=== PATIENT | female | born 1950 | race Caucasian/White ===

== ENCOUNTER 2020-02-23 12:03 | Outpatient (NON) | payer OTHER, SELFPAY ==
[2020-02-23 23:29] LABS: SARS-CoV-2 RNA PCR Negative
== END 2020-02-23 12:04 ==
PROVIDERS: PCP Family Medicine; Visit Provider Nurse Practitioner Family
DX: R05 Cough (principal); Z20.822 Contact with and (suspected) exposure to COVID-19
CPT/HCPCS: C9803; U0003

== ENCOUNTER 2021-04-24 10:05 | Outpatient (CLI) | payer OTHER, SELFPAY ==
--- NOTE | ~2021-04-24 | CT_ITS ---
EXAMINATION: CT lung screening DATE: 04/24/2021 10:19 INDICATION: Personal history of nicotine dependence, prior smoker with 40 pack year history TECHNIQUE: Computed tomography (CT) of the chest was performed without intravenous contrast. The dose -length product (DLP) was 91.73 mGy-cm. Automated exposure control and iterative reconstruction techn [employer] were employed. COMPARISON: 05/14/2018 FINDINGS: There are tiny 1 to 2 mm nodules of the upper lobes. No suspicious pulmonary nodule is iden tified. Calcified pulmonary nodules and calcified left hilar lymph nodes are consistent with old gran ulomatous disease. The lungs are free acute opacities. There is no pleural effusion or pneumothorax. No pathologically enlarged thoracic lymph nodes are identified. The heart size is normal. There is ca lcified coronary artery atherosclerosis. Subendocardial fat deposition in the left ventricular apex i s consistent with prior myocardial infarction. Bilateral adrenal adenomas are stable. There is mild t horacic spondylosis. IMPRESSION: 1. Lung-RADS category 2: Benign appearance or behavior. Continue annual screening with noncontrast lo w-dose chest CT in 12 months. Reviewed, dictated and finalized at location B. KER [employer]IT ASSEMBLER IMPRESSION: 1. Lung-RADS category 2: Benign appearance or behavior. Continue annual screeni ng with noncontrast low-dose chest CT in 12 months.
== END 2021-04-24 10:06 | disposition home or self-care (01) ==
LOC: ANHIMG 10:08
PROVIDERS: PCP Family Medicine; Visit Provider Nurse Practitioner Family
DX: Z12.2 Encounter for screening for malignant neoplasm of respiratory organs (principal); Z87.891 Personal history of nicotine dependence
CPT/HCPCS: 71271

== ENCOUNTER 2021-08-02 12:48 | Outpatient (CLI) | payer OTHER, SELFPAY ==
--- NOTE | ~2021-08-02 | MM_ITS ---
EXAMINATION: MM screening tyra BI w marty HISTORY: Screening TECHNIQUE: Craniocaudal and mediolateral oblique 3-D tomosynthesis images were obtained and synthetic 2-D images were generated. CAD analysis was submitted and interpreted. COMPARISON: Comparison to multiple prior studies sequentially, with oldest reviewed study dated 11/16. BREAST PARENCHYMAL COMPOSITION: There are scattered areas of fibroglandular density. FINDINGS: There is no evidence of suspicious mass, calcification, or architectural distortion to sugg est malignancy in either breast. There has been no suspicious interval change. IMPRESSION: 1. No mammographic evidence of malignancy. 2. Recommend routine screening mammography in one year. BI-RADS Category 1: Negative Reviewed, dictated and finalized at location D.
--- NOTE | ~2021-08-02 | DEXA_ITS ---
Bone Density Report Name: EBONY LAMA Age: 71 Sex: Female Ethnicity: White Date of : 1950 Indication: osteopenia; postmenopausal Referring Provider: SIM RICHARDSON Study: Bone densitometry was performed. Exam Date: August 02, 2021 Accession number: [id number] Bone Density: Region BMD T-score Z-score Classification AP Spine(L1, L2, L3) 0.989 -0.3 1.8 Normal Femoral Neck (Left) 0.669 -1.6 0.2 Osteopenia Total Hip (Left) 0.776 -1.4 0.2 Osteopenia Femoral Neck (Right) 0.587 -2.4 -0.5 Osteopenia Total Hip (Right) 0.699 -2.0 -0.5 Osteopenia Total Hip Mean 0.737 -1.7 -0.2 Osteopenia World Health Organization criteria for BMD impression classify patients as: Normal (T-score at or above -1.0), Osteopenia (T-score between -1.0 and -2.5), or Osteoporosis (T-score at or below -2.5). 10-year Fracture Risk(1): Major Osteoporotic Fracture 13% Hip Fracture 3.1% Reported Risk Factors: [place] (), Neck BMD=0.587, BMI=28.5 (1) FRAX(R) Version 3.08. Fracture probability calculated for an untreated patient. Fracture probability may be lower if the patient has received treatment. Previous Exams: Region Exam Age BMD T-score BMD Change BMD Change Date g/cm2 vs Baseline vs Previous AP Spine (L1-L3) 08/02/2021 71 0.989 -0.3 -0.019 (-1.8%) -0.019 (-1.8%) 05/07/2018 68 1.007 -0.1 Total Hip(Left) 08/02/2021 71 0.776 -1.4 -0.054 (-6.5%) -0.054 (-6.5%) 05/07/2018 68 0.830 -0.9 Total Hip(Right) 08/02/2021 71 0.699 -2.0 -0.023 (-3.2%) -0.023 (-3.2%) 05/07/2018 68 0.722 -1.8 *Denotes significance at 95% confidence level, LSC for AP Spine = 0.022 g/cm2, LSC for Total Hip = 0.027 g/cm2 Clinical Information Provided by Patient: Has used the following medications: Vitamin D, Calcium Patient maximum height was 62.5 Menopause Age: 53 No regular weight bearing exercise Drinks caffeinated beverages Onset of menses at age 14 Number of children 2 Impression: The patient has low bone mass, based on the Right Femoral Neck T-score. The patient has an estimated ten-year risk of hip fracture of 3.1% and an estimated ten-year risk of major fracture of 13%, based on the WHO FRAX algorithm. The BMD for the Total Hip(Left) decreased, changing by -6.5% since the last DXA exam. Discussion: BONE DENSITY IS LOW AT ONE OR MORE SKELETAL SITES. THE PATIENT'S BMD AND CLINICAL RISK FACTORS CONTRIBUTE TO THIS PATIENT'S INCREASED RIS
== END 2021-08-02 12:49 | disposition home or self-care (01) ==
LOC: ANHIMG 12:51
PROVIDERS: PCP Family Medicine; Visit Provider Physician Assistant
DX: Z12.31 Encounter for screening mammogram for malignant neoplasm of breast (principal); Z78.0 Asymptomatic menopausal state; M85.852 Other specified disorders of bone density and structure, left thigh; M85.851 Other specified disorders of bone density and structure, right thigh
CPT/HCPCS: 77063; 77067; 77080

== ENCOUNTER 2021-12-04 12:04 | Outpatient (CLI) | payer OTHER, SELFPAY ==
--- NOTE | ~2021-12-04 | XR_ITS ---
EXAMINATION: XR lumbar spine 2-3V DATE: 12/04/2021 12:36 INDICATION: Low back pain TECHNIQUE: Anteroposterior and lateral views of the lumbar spine, and cone-down lateral view of the l umbosacral junction were obtained. COMPARISON: 04/22/2012 FINDINGS: There are 8 mm of anterolisthesis of L3 on L4 and L4 on L5 with interval worsening since th e comparison examination. Laminectomy changes are noted from L3 through L5. A retained pedicle screw is noted on the left at L5. There is severe loss of intervertebral disc space height at L3-4 and mode rate loss of disc space height throughout the remainder of the lumbar spine. No fracture is identifie d. Calcified atherosclerosis is noted. IMPRESSION: 1. Moderate to severe lumbar spondylosis with slight interval worsening. 2. Laminectomy changes from L3 through L5 with chronic retained pedicle screw on the left at L5. Reviewed, dictated and finalized at location A. IMPRESSION: 1. Moderate to severe lumbar spondylosis with slight interval worsening. 2. Laminectomy changes from L3 through L5 with chronic retained pedicle screw o n the left at L5.
== END 2021-12-04 12:05 | disposition home or self-care (01) ==
PROVIDERS: PCP Family Medicine; Visit Provider Family Medicine
DX: M54.50 Low back pain, unspecified (principal); M47.816 Spondylosis without myelopathy or radiculopathy, lumbar region; Z98.890 Other specified postprocedural states
CPT/HCPCS: 72100

== ENCOUNTER 2021-12-12 16:27 | Outpatient (CLI) | payer OTHER, SELFPAY ==
--- NOTE | ~2021-12-12 | MR_ITS ---
EXAMINATION: MR lumbar spine wo con DATE: 12/12/2021 17:13 INDICATION: Severe lumbar spondylosis. TECHNIQUE: Magnetic resonance imaging (MRI) of the lumbar spine was performed without intravenous con trast. Sequences included sagittal T2-weighted FSE, sagittal T2-weighted FS FSE, sagittal T1-weighted FSE, and axial T2-weighted FSE. COMPARISON: Lumbar spine MRI 10/18/2011, radiographs 12/04/2021 FINDINGS: There is 12 degrees levoscoliosis of thoracolumbar spine. There is 3 mm retrolisthesis of L 2 on L3. There is 7 mm retrolisthesis of L3 on L4 and L4 on L5. Vertebral body heights are normal. Th ere is an old left L4 pars defect. There is artifact from a retained screw fragment in left L5 pedicl e. There is mildly decreased disc height at L1-L2 and L2-L3, severely decreased disc height at L3-L4, and moderately decreased disc height at L4-L5 and L5-S1 1 with endplate remodeling. The distal spina l cord signal intensity is normal. The conus medullaris is at L1. The following disc levels are speci fically discussed: L1-L2: The disc is bulging. There is mild right and moderate left facet joint osteoarthritis. There i s mild bilateral neural foraminal stenosis. There is mild central canal stenosis. L2-L3: The disc is bulging. There is moderate bilateral facet joint osteoarthritis. There is mild yanely ateral neural foraminal stenosis. There is mild central canal stenosis. L3-L4: The disc is bulging and has an annular fissure. There is severe bilateral facet joint osteoart hritis. There is moderate bilateral neural foraminal stenosis. There is mild central canal stenosis w ith posterior decompression. There is severe stenosis of right lateral recess. L4-L5: The disc is bulging and has an annular fissure. There is severe bilateral facet joint osteoart hritis. There is moderate bilateral neural foraminal stenosis. There is mild central canal stenosis w ith posterior decompression. L5-S1: The disc is bulging and has an annular fissure. There is moderate bilateral facet joint osteoa rthritis. There is mild bilateral neural foraminal stenosis. There is mild central canal stenosis wit h posterior decompression. IMPRESSION: 1. Severe lumbar spondylosis, worsened from 10/18/2011. 2. Thoracolumbar levoscoliosis. Reviewed, dictated and finalized at location A.
== END 2021-12-12 16:28 | disposition home or self-care (01) ==
PROVIDERS: PCP Family Medicine; Visit Provider Nurse Practitioner Family
DX: M54.50 Low back pain, unspecified (principal); M47.816 Spondylosis without myelopathy or radiculopathy, lumbar region; Z98.1 Arthrodesis status; M41.85 Other forms of scoliosis, thoracolumbar region
CPT/HCPCS: 72148

== ENCOUNTER 2022-04-24 14:47 | Outpatient (CLI) | payer OTHER, SELFPAY ==
--- NOTE | ~2022-04-24 | CT_ITS ---
EXAMINATION: CT lung screening DATE: 04/24/2022 15:05 INDICATION: lung cancer screening TECHNIQUE: Computed tomography (CT) of the chest was performed without intravenous contrast. Addition al 3D reconstructions utilizing coronal maximum intensity projection (MIP) were performed. Automated exposure control and iterative reconstruction technique were employed. The dose-length product was 85 .20 mGy-cm. COMPARISON: 04/24/2021 FINDINGS: Calcified nodule at the lingula and calcified left hilar and mediastinal lymph nodes consistent with old granulomatous disease. 3 mm noncalcified left lower lobe nodule along the posterior margin of the left hemidiaphragm which appears new since the prior study. No pneumonia, pulmonary edema or pleural effusion. Heart size is normal. Atherosclerotic coronary artery calcific lesion. No pericardial effu anam. No pathologically enlarged thoracic lymphadenopathy. No interval change in small bilateral adre nal nodules, the largest on the right measuring 1.2 cm consistent with adenomas. Mild thoracic spondy losis. IMPRESSION: 1. Lung-RADS category 2: Benign appearance or behavior. Continue annual screening with noncontrast lo w-dose chest CT in 12 months. Reviewed, dictated and finalized at location A. DROPPER IMPRESSION: 1. Lung-RADS category 2: Benign appearance or behavior. Continue annual screeni ng with noncontrast low-dose chest CT in 12 months.
== END 2022-04-24 14:48 | disposition home or self-care (01) ==
PROVIDERS: PCP Family Medicine; Visit Provider Family Medicine
DX: Z12.2 Encounter for screening for malignant neoplasm of respiratory organs (principal); Z87.891 Personal history of nicotine dependence
CPT/HCPCS: 71271

== ENCOUNTER 2022-05-09 00:33 | Day surgery (SDC) | payer OTHER, SELFPAY ==
[2022-04-26 13:01] VITALS: BMI 28.5
--- NOTE | 2022-05-08 15:13 | PM.HPGS ---
History of Present Illness History of Present Illness Consent: Risks, benefits, and alternatives have been discussed and questions answered. Patient agrees to proceed with procedure. Chief complaint: neoplasm screening Narrative: Livia Hopper is a 72 year old female referred for colon cancer screening. She has had polyps removed in the past. Review of Systems Review of Systems: All systems reviewed & are unremarkable except as noted in HPI and below PMFSH Past Medical History Medical History HTN (hypertension) Surgical History Surgical History History of lumbar fusion Family History Family History Mother Hypertension Father Family history of malignant neoplasm Family history of coronary artery disease Other Family history of arthritis Family history of heart disease in male family member before age 55 Social History Social History Smoking packs per day: 1 Smoking cigarettes per day: 20.0 Years smoked: 40 Smoking pack-years: 40.00 Smoking status: Former smoker Tobacco type: cigarettes Second hand tobacco smoke exposure: No Smoking end date: 02/19/16 Alcohol intake: never Substance use: never Substance use type: does not use Living arrangements: with family Occupation/Education: retired Gender identity (if verbalized by the patient): Female Sexual Orientation (if Verbalized by the Patient): Straight or Heterosexual Meds Home Medications and Allergies Home Medications Medication Instructions Recorded Confirmed Type umeclidinium 62.5 mcg-vilanterol 1 inh inhalation DAILY #60 ea 02/29/20 04/26/22 Rx 25 mcg/actuation powdr for inhalation (Anoro Ellipta) buspirone 15 mg tablet See Rx Instructions .Route 08/08/21 05/09/22 Rx .COMPLEX #180 tabs duloxetine 30 mg capsule,delayed See Rx Instructions .Route 10/30/21 04/26/22 Rx release .COMPLEX #90 caps lamotrigine 200 mg tablet See Rx Instructions .Route 12/04/21 04/26/22 Rx .COMPLEX #90 tabs verapamil 240 mg 24 hr See Rx Instructions .Route 12/04/21 04/26/22 Rx capsule,extended release .COMPLEX #90 caps levothyroxine 25 mcg tablet See Rx Instructions .Route 12/07/21 04/26/22 Rx .COMPLEX #90 tabs topiramate 25 mg tablet (Topamax) 25 mg PO DAILY #90 tabs 01/17/22 04/26/22 Rx atorvastatin 40 mg tablet See Rx Instructions .Route 02/28/22 04/26/22 Rx .COMPLEX #90 tabs trazodone 100 mg tablet See Rx Instructions .Route 02/28/22 04/26/22 Rx .COMPLEX #180 tabs cyclobenzaprine 5 mg tablet 5 - 10 mg PO TID PRN muscle spasm 04/13/22 04/26/22 Rx #30 tabs Allergies Allergy/AdvReac Type Severity Reaction Status Date / Time duloxetine Allergy Unknown do not work Verified 05/09/22 07:17 Penicillins Allergy Unknown Hives Verified 05/09/22 07:17 Exam Resp: Auscultation: clear to auscultation bilaterally Cardio: Rate: regular rate Rhythm: regular rhythm GI: GI Palp: Yes Soft to palpation and No Tenderness to palpation present (GI) Assessment and Plan Assessment and plan (1) Colon cancer screening: Code(s): Z12.11 - Encounter for screening for malignant neoplasm of colon Status: Acute Assessment and Plan: Colonoscopy with possible biopsy or polypectomy or cautery or injection of substances.
[2022-05-09 07:18] VITALS: BP 152/76; PULSE 103; RESP 18; TEMP 35.8; O2SAT 99
[2022-05-09] MEDS: LACTATED RINGERS 1,000 ML 150 ML IV CONT (07:31)
--- NOTE | 2022-05-09 07:31 | WPDANESEPPF ---
Anes - Initial Pre Proc Eval Procedure: Operation Date: 05/09/22 08:30 Proposed Procedures p Screening Colonoscopy - Toy Colon MD Date/Time: 05/09/22 07:31 Surgeon: Toy Colon MD Pre Op Diagnosis: neoplasm screening Patient Data Age: 72 Gender: F Height: 1.57 m Weight: 70.3 kg Last Vital Signs Temp 96.4 F L 05/09/22 07:18 Pulse 103 H 05/09/22 07:18 Resp 18 05/09/22 07:18 BP 152/76 H 05/09/22 07:18 Pulse Ox 99 05/09/22 07:18 O2 Del Method Room Air 05/09/22 07:18 Allergies Allergy/AdvReac Type Severity Reaction Status Date / Time duloxetine Allergy Unknown do not work Verified 05/09/22 07:17 Penicillins Allergy Unknown Hives Verified 05/09/22 07:17 Home Medications Medication Instructions Recorded Confirmed Type umeclidinium 62.5 mcg-vilanterol 1 inh inhalation DAILY #60 ea 02/29/20 04/26/22 Rx 25 mcg/actuation powdr for inhalation (Anoro Ellipta) buspirone 15 mg tablet See Rx Instructions .Route 08/08/21 05/09/22 Rx .COMPLEX #180 tabs duloxetine 30 mg capsule,delayed See Rx Instructions .Route 10/30/21 04/26/22 Rx release .COMPLEX #90 caps lamotrigine 200 mg tablet See Rx Instructions .Route 12/04/21 04/26/22 Rx .COMPLEX #90 tabs verapamil 240 mg 24 hr See Rx Instructions .Route 12/04/21 04/26/22 Rx capsule,extended release .COMPLEX #90 caps levothyroxine 25 mcg tablet See Rx Instructions .Route 12/07/21 04/26/22 Rx .COMPLEX #90 tabs topiramate 25 mg tablet (Topamax) 25 mg PO DAILY #90 tabs 01/17/22 04/26/22 Rx atorvastatin 40 mg tablet See Rx Instructions .Route 02/28/22 04/26/22 Rx .COMPLEX #90 tabs trazodone 100 mg tablet See Rx Instructions .Route 02/28/22 04/26/22 Rx .COMPLEX #180 tabs cyclobenzaprine 5 mg tablet 5 - 10 mg PO TID PRN muscle spasm 04/13/22 04/26/22 Rx #30 tabs Patient hx anesthesia problems: none Family hx anesthesia problems: none Results Review: All pre-operative results and documents have been reviewed as part of the pre-operative evaluation. [facility] Past Medical History Medical History HTN (hypertension) Surgical History Surgical History History of lumbar fusion Family History Family History Mother Hypertension Father Family history of malignant neoplasm Family history of coronary artery disease Other Family history of arthritis Family history of heart disease in male family member before age 55 Social History Social History Smoking packs per day: 1 Smoking cigarettes per day: 20.0 Years smoked: 40 Smoking pack-years: 40.00 Smoking status: Former smoker Tobacco type: cigarettes Second hand tobacco smoke exposure: No Smoking end date: 02/19/16 Alcohol intake: never Substance use: never Substance use type: does not use Living arrangements: with family Occupation/Education: retired Gender identity (if verbalized by the patient): Female Sexual Orientation (if Verbalized by the Patient): Straight or Heterosexual Anes - Eval Final PreProcedure Day of Procedure 05/09/22 07:31 Patient weight: normal Heart: regular rate and rhythm Lungs: clear to auscultation Neurological: alert and oriented Last oral intake: >/= 8 hours Emergent: no Anesthetic plan: proceed Results Review: All pre-operative results and documents have been reviewed as part of the pre-operative evaluation. Informed Consent: The patient's anesthetic plan and its attendant risks and benefits were discussed with the patient/family/POA. Questions were solicited and answers provided to the satisfaction of the patient/family/POA.
[2022-05-09] MEDS: SIMETHICONE ORAL SUSPENSION 20 MG/0.3 ML 30 ML BOTTLE 0.6 ML IRRIGATION (08:08)
[2022-05-09 08:14] VITALS: BP 114/64; PULSE 76; RESP 22; O2SAT 99
[2022-05-09 08:24] VITALS: BP 123/67; PULSE 76; RESP 12; O2SAT 99
[2022-05-09 08:34] VITALS: BP 122/67; PULSE 78; RESP 22; O2SAT 98
== END 2022-05-09 08:44 | disposition home or self-care (01) ==
PROVIDERS: PCP Family Medicine; Visit Provider Internal Medicine Gastroenterology
PROC: 0DJD8ZZ Inspection of Lower Intestinal Tract, Via Natural or Artificial Opening Endoscopic (ICD-10-PCS; CPT 45378; principal; 2022-05-09 08:30)
DX: Z12.11 Encounter for screening for malignant neoplasm of colon (principal); K57.30 Diverticulosis of large intestine without perforation or abscess without bleeding; K62.1 Rectal polyp; I10 Essential (primary) hypertension; Z79.51 Long term (current) use of inhaled steroids; Z98.1 Arthrodesis status; Z87.891 Personal history of nicotine dependence
CPT/HCPCS: 45385; 88305; J2704; J7120

== ENCOUNTER 2022-06-02 07:53 | Outpatient (CLI) | payer OTHER, SELFPAY ==
--- NOTE | ~2022-06-02 | XR_ITS ---
Right Knee Technique: AP, lateral, and sunrise views were obtained. Clinical History: Pain Findings: No fracture or dislocation is seen. There is advanced medial compartment degenerative koo e, with medial joint line osteophytes and medial joint space narrowing. There is moderate degenerativ e change of the lateral and patellofemoral compartment, with prominent osteophyte formation. Small to moderate joint effusion is seen. Impression: Tricompartmental osteoarthritis, as detailed above, worst in the medial compartment. [id number] joint effusion. Reviewed, dictated and finalized at location M. Impression: Tricompartmental osteoarthritis, as detailed above, worst in the medial compart ment. [id number] joint effusion.
== END 2022-06-02 07:54 | disposition home or self-care (01) ==
PROVIDERS: PCP Family Medicine; Visit Provider Family Medicine
DX: M17.11 Unilateral primary osteoarthritis, right knee (principal); M25.461 Effusion, right knee
CPT/HCPCS: 73562

== ENCOUNTER 2022-08-14 10:27 | Emergency (ER) | payer OTHER, SELFPAY ==
[2022-08-14 10:34] VITALS: BP 143/81; PULSE 98; RESP 18; TEMP 36.7; O2SAT 99
--- NOTE | 2022-08-14 10:34 | ED.WOUNDLAC ---
HPI - Wound/Laceration General Chief Complaint: Wound/Laceration Stated Complaint: Cut Finger Rt Hand Time Seen by Provider: 08/14/22 10:34 Source: patient Mode of arrival: ambulatory Limitations: no limitations History of Present Illness HPI narrative: 72-year-old female presented for complaint of laceration to the right hand after injury yesterday. States she cut the hand at the knuckle while washing a glass at about 1600. States she was unable to stop bleeding. She has applied Neosporin and a Band-Aid as well as liquid Band-Aid but continued to bleed until today. She denies decreased range motion, numbness, tingling, or weakness. She takes a baby aspirin daily. Declines tetanus update Related Data Allergies Allergy/AdvReac Type Severity Reaction Status Date / Time Penicillins Allergy Unknown Hives Verified 07/26/22 10:42 Review of Systems Review of Systems: CONSTITUTIONAL: Denies body aches, fever, chills, or sweats. EYES: Denies visual changes, redness, or discharge. ENT: Denies rhinorrhea, congestion CARDIOVASCULAR: Denies chest pain, palpitations, or edema. RESPIRATORY: Denies cough or dyspnea. GASTROINTESTINAL: Denies abdominal pain, nausea, vomiting, or diarrhea. SKIN: Per HPI MUSCULOSKELETAL: Denies back pain, joint pain, or myalgia. NEUROLOGIC: Denies headache, numbness, tingling, or weakness. [facility] Past Medical History Medical History (Updated 08/14/22 @ 11:50 by Jennifer Chacon APRN) Bipolar disorder, unspecified COPD (chronic obstructive pulmonary disease) HTN (hypertension) Stage 3a chronic kidney disease (CKD) Surgical History Surgical History History of lumbar fusion Family History Family History Mother Hypertension Father Family history of malignant neoplasm Family history of coronary artery disease Other Family history of arthritis Family history of heart disease in male family member before age 55 Social History Social History Smoking packs per day: 1 Smoking cigarettes per day: 20.0 Years smoked: 40 Smoking pack-years: 40.00 Smoking status: Former smoker Tobacco type: cigarettes Second hand tobacco smoke exposure: No Smoking end date: 02/19/16 Alcohol intake: never Substance use: never Substance use type: does not use Living arrangements: with family Occupation/Education: retired Gender identity (if verbalized by the patient): Female Sexual Orientation (if Verbalized by the Patient): Straight or Heterosexual Comments At time of signature, I have reviewed and agree with nursing past medical, surgical, social and family history unless otherwise noted. Please see nursing chart for further information. There is no relevant family history pertinent to the presenting complaint Exam Narrative: GENERAL: Well-appearing HEAD: Normocephalic, atraumatic. EYES: conjunctivae clear, and EOMI. ENT: Mucous membranes moist. NECK: Supple. No lymphadenopathy CHEST: Clear to auscultation. HEART: Regular rate and rhythm. SKIN: Warm, dry. Right hand 2nd MCP with C-shaped laceration flap approx 1cm, minimal active bleeding NEURO: Alert and oriented x3. Course Course Emergency Course: Patient is aware of diagnosis, understands and agrees to treatment plan. Anticipatory guidance given. Patient agrees to follow-up as directed and is aware of reasons to seek care at the emergency department. Portions of this record may have been created with voice recognition software Level of Care: Express Care Visit Vital Signs Vital signs: Vital Signs Temperature 98.0 F 08/14/22 10:34 Pulse Rate 98 08/14/22 10:34 Respiratory Rate 18 08/14/22 10:34 Blood Pressure 143/81 H 08/14/22 10:34 Pulse Oximetry 99 08/14/22 10:34 Oxygen Delivery Room Air 08/14/22 10:34
[2022-08-14 10:40] VITALS: BP 143/81; PULSE 98; RESP 18; TEMP 36.7; O2SAT 99
== END 2022-08-14 11:43 | disposition home or self-care (01) ==
PROVIDERS: Emergency Provider Nurse Practitioner Family; PCP Family Medicine
DX: S61.411A Laceration without foreign body of right hand, initial encounter (principal); W25.XXXA Contact with sharp glass, initial encounter; Y93.G1 Activity, food preparation and clean up; Z87.891 Personal history of nicotine dependence; J44.9 Chronic obstructive pulmonary disease, unspecified; I12.9 Hypertensive chronic kidney disease with stage 1 through stage 4 chronic kidney disease, or unspecified chronic kidney disease; N18.31 Chronic kidney disease, stage 3a; Z79.82 Long term (current) use of aspirin
CPT/HCPCS: 12002; 99213; G0463

== ENCOUNTER 2023-04-27 10:55 | Outpatient (CLI) | payer OTHER, SELFPAY ==
--- NOTE | ~2023-04-27 | XR_ITS ---
EXAMINATION: XR abdomen/kub 1V DATE: 04/27/2023 11:17 INDICATION: Low abdominal pain. TECHNIQUE: A supine view of the abdomen on 2 radiographs was obtained. COMPARISON: None. FINDINGS: There are no dilated loops of bowel. There is a moderate volume of stool in the colon. Calc ifications in the pelvis are likely phleboliths. There is a screw fragment in L5 vertebral body. IMPRESSION: 1. Normal bowel gas pattern. Reviewed, dictated and finalized at location E. EL SNIPPER
--- NOTE | ~2023-04-27 | CT_ITS ---
EXAMINATION:CT lung screening DATE: 04/27/2023 11:21 INDICATION: Personal history of nicotine dependence. Smoker who quit 6 years ago with 40 pack year hi story. TECHNIQUE: Computed tomography (CT) of the chest was performed without intravenous contrast. Automate d exposure control and iterative reconstruction technique were employed. The dose-length product (DLP ) was 78.19 mGy-cm. COMPARISON: Chest CT 04/24/2022 FINDINGS: There is mild scarring at the lung apices. There is a 2 mm nodule in right upper lobe. Calc ified bilateral lung nodules and calcified hilar and mediastinal lymph nodes are consistent with old granulomatous disease. No pleural effusion. The heart size is normal. There are coronary artery calci fications. No pericardial effusion. There is a 17 mm mass in right adrenal gland measuring soft tissu e attenuation without change, likely an adenoma. There is a stable 15 mm mass in left adrenal gland m easuring low-attenuation, consistent with an adenoma. There is mild thoracic spondylosis. IMPRESSION: 1. Lung-RADS category 2: Benign appearance or behavior. Continue annual screening with noncontrast lo w-dose chest CT in 12 months. Reviewed, dictated and finalized at location E. ASTER IMPRESSION: 1. Lung-RADS category 2: Benign appearance or behavior. Continue annual screeni ng with noncontrast low-dose chest CT in 12 months.
== END 2023-04-27 10:56 | disposition home or self-care (01) ==
PROVIDERS: PCP Family Medicine; Visit Provider Family Medicine
DX: Z12.2 Encounter for screening for malignant neoplasm of respiratory organs (principal); R10.30 Lower abdominal pain, unspecified; Z87.891 Personal history of nicotine dependence
CPT/HCPCS: 71271; 74018

== ENCOUNTER 2024-02-05 08:38 | Outpatient (CLI) | payer OTHER, SELFPAY ==
--- NOTE | ~2024-02-05 | MM_ITS ---
EXAMINATION: MM screening tyra BI w marty HISTORY: Screening TECHNIQUE: Craniocaudal and mediolateral oblique 3-D tomosynthesis images were obtained and synthetic 2-D images were generated. CAD analysis was submitted and interpreted. COMPARISON: Comparison to multiple prior studies sequentially, with oldest reviewed study dated 05/07. BREAST PARENCHYMAL COMPOSITION: Not dense: There are scattered areas of fibroglandular density. FINDINGS: There is no evidence of suspicious mass, calcification, or architectural distortion to sugg est malignancy in either breast. There has been no suspicious interval change. IMPRESSION: 1. No mammographic evidence of malignancy. 2. Recommend routine screening mammography in one year. BI-RADS Category 1: Negative Reviewed, dictated and finalized at location [] ING M[employer]ER TENDER
== END 2024-02-05 08:39 | disposition home or self-care (01) ==
LOC: ANHIMG 08:38
PROVIDERS: PCP Family Medicine; Visit Provider Family Medicine
DX: Z12.31 Encounter for screening mammogram for malignant neoplasm of breast (principal)
CPT/HCPCS: 77063; 77067

== ENCOUNTER 2024-04-29 09:50 | Outpatient (CLI) | payer OTHER, SELFPAY ==
--- NOTE | ~2024-04-29 | CT_ITS ---
CT Scan of the Chest without Contrast: Clinical Indication: Lung cancer screening, nicotine dependence Technique: Contiguous sections were acquired throughout the chest without intravenous contrast. Dose reduction technique was used on this scan by utilizing automated exposure control and iterative recon struction technique. The dose-length product (DLP) was 91.80 mGy-cm. COMPARISON: 04/27/2023 Findings: There is no evidence of any significant mediastinal, hilar or axillary lymphadenopathy. Coronary mervin ry calcifications are present. There is no evidence of pleural or pericardial effusion. The lungs are clear, aside from calcified left upper lobe granuloma. Images through the upper abdomen reveal low-density adrenal nodules, compatible with adenomas. Small calcified gallstones are present. Impression: Lung RADS 1: Negative. 12 month follow-up screening CT advised. Reviewed, dictated and finalized at [facility]. Impression: Lung RADS 1: Negative. 12 month follow-up screening CT advised.
--- OUTSIDE RECORDS SUMMARY | 2024-04-29 10:46 | XMS_ITS | Clinical Summary ---
Author Organization [facility] Address [address] [place] [address] Care Team Providers Care Soaking Pits Supervisor Name Role Phone Jordon De La Paz MD Primary Care Provider [phone] Social History Tobacco Use Types Packs/Day Years Used Date Smoking Tobacco: Never Assessed Comments Unknown Sex and Gender Information Value Date Recorded Sex Assigned at Not on file Legal Sex Female 4:19 PM CDT Gender Identity Not on file Sexual Orientation Not on file Plan of Treatment Health Maintenance Due Date Last Done Comments Colorectal Cancer Screening Colonoscopy (10 Years) 1950 Hepatitis C 1969 DTaP, Tdap and Td Vaccines ( 1 - Tdap) 1970 Mammogram Screening 1991 Zoster Vaccines (1 of 2) 2001 Dexa Scan (General) 02/26/2016 Pneumococcal Vaccine: 65+ Ye ars (1 of 1 - PCV) 02/26/2016 COVID-19 Vaccine ( - 2023-2 5 season) 2023 Influenza Adult (#1) 2023 RSV Immunization or 60+ Years (1 - 1-dose 75+ series) 2026 Meningococcal B Vaccine Aged Out No l onger eligible based on patient's age to complete this topic Meningococcal Vaccine Aged Out No martha ene eligible based on patient's age to complete this topic RSV Immunizations Under 20 Months Aged Out No longer eligible based on patient's age to complete this topic Care Teams Soaking Pits Supervisor Relationship Specialty Start Date End Date Jordon De La Paz MD [address] [place] [address] PCP - General 04/09/15
== END 2024-04-29 09:51 | disposition home or self-care (01) ==
PROVIDERS: PCP Family Medicine; Visit Provider Family Medicine
DX: Z12.2 Encounter for screening for malignant neoplasm of respiratory organs (principal); Z87.891 Personal history of nicotine dependence
CPT/HCPCS: 71271

== ENCOUNTER 2024-05-04 13:49 | Outpatient (CLI) | payer OTHER, SELFPAY ==
--- NOTE | ~2024-05-04 | DEXA_ITS ---
Bone Density Report Name: EBONY LAMA Age: 74 Sex: Female Ethnicity: White Date of : 1950 Indication: osteopenia; secondary osteoporosis; Referring Provider: SUSIE JASSO Study: Bone densitometry was performed. Exam Date: May 04, 2024 Accession number: [id number] Bone Density: Region BMD T-score Z-score Classification AP Spine(L1, L2, L3) 1.011 -0.1 2.2 Normal Femoral Neck (Left) 0.567 -2.5 -0.6 Osteoporosis Total Hip (Left) 0.776 -1.4 0.3 Osteopenia Femoral Neck (Right) 0.554 -2.7 -0.7 Osteoporosis Total Hip (Right) 0.675 -2.2 -0.5 Osteopenia Total Hip Mean 0.726 -1.8 -0.1 Osteopenia World Health Organization criteria for BMD impression classify patients as: Normal (T-score at or above -1.0), Osteopenia (T-score between -1.0 and -2.5), or Osteoporosis (T-score at or below -2.5). 10-year Fracture Risk: FRAX not reported because: Some T-score for Spine Total or Hip Total or Femoral Neck at or below -2.5 Previous Exams: Region Exam Age BMD T-score BMD Change BMD Change Date g/cm2 vs Baseline vs Previous AP Spine (L1-L3) 05/04/2024 74 1.011 -0.1 0.004 (0.4%) 0.022 (2.2%) 08/02/2021 71 0.989 -0.3 -0.019 (-1.8%) -0.019 (-1.8%) 05/07/2018 68 1.007 -0.1 Total Hip(Left) 05/04/2024 74 0.776 -1.4 -0.053 (-6.4%) 0.000 (0.1%) 08/02/2021 71 0.776 -1.4 -0.054 (-6.5%) -0.054 (-6.5%) 05/07/2018 68 0.830 -0.9 Total Hip(Right) 05/04/2024 74 0.675 -2.2 -0.047 (-6.5%) -0.023 (-3.3%) 08/02/2021 71 0.699 -2.0 -0.023 (-3.2%) -0.023 (-3.2%) 05/07/2018 68 0.722 -1.8 *Denotes significance at 95% confidence level, LSC for AP Spine = 0.022 g/cm2, LSC for Total Hip = 0.027 g/cm2 Clinical Information Provided by Patient: Has secondary osteoporosis Has used the following medications: Vitamin D Patient maximum height was 62.0 Menopause Age: 53 No regular weight bearing exercise Does not regularly consume dairy products Drinks caffeinated beverages Onset of menses at age 14 Number of children 2 Impression: The patient has osteoporosis, based on the Right Femoral Neck T-score. No significant bone loss was observed. Discussion: INCREASED RISK OF FRACTURE. BONE DENSITY IS UNDESIRABLY LOW AT ONE OR MORE SKELETAL SITES, CONSISTENT WITH POSTMENOPAUSAL OSTEOPOROSIS. This patient's lowest T-score meets the World Health Organization's (WHO) criteria for osteoporosis at one or more sites (T-score -2.5 or below). In untreated patients, the risk of osteoporotic fracture increases approximately two-fold for each 1.0 SD decrease in T-score. Low bone density is not the only risk factor for fracture; also consider factors such as patient's age, frailty or poor health, risk of falling, risk of injury, previous osteoporotic fracture, family history of osteoporosis, cigarette smoking, low body weight, etc. Not everyone with low bone mineral density has osteoporosis; osteomalacia and other metabolic bone disorders should also be considered. Patients who have osteoporosis should be evaluated for specific diseases and conditions (secondary causes) that may cause or contribute to bone loss. The [place] Association of Clinical Endocrinologists (AACE) and National Osteoporosis Foundation (NOF) recommend pharmacologic intervention for all postmenopausal women whose T-score is in this range. The patient should follow a healthful lifestyle (good nutrition with adequate calcium and vitamin D, and appropriate weight-bearing exercise). Follow-Up: Consider a repeat BMD and Vertebral Fracture Assessment (VFA) exam in 2 years or sooner if medically necessary, to reassess this patient's status. Reported by: EVELIN on 05/04/2024 2:23:00 PM. Reviewed, dictated and finalized at location A.
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
--- OUTSIDE RECORDS SUMMARY | 2024-05-04 16:27 | XMS_ITS | Clinical Summary ---
Author Organization [facility] Address [address] [place] [address] Care Team Providers Care Electrician Name Role Phone Jordon De La Paz MD Primary Care Provider [phone] Social History Tobacco Use Types Packs/Day Years [...] age to complete this topic Care Teams Electrician Relationship Specialty Start Date End Date Jordon De La Paz MD [address] [place] [address] PCP - General 04/09/15
== END 2024-05-04 13:50 | disposition home or self-care (01) ==
LOC: ANHIMG 13:51
PROVIDERS: PCP Family Medicine; Visit Provider Family Medicine
DX: M81.0 Age-related osteoporosis without current pathological fracture (principal); M85.89 Other specified disorders of bone density and structure, multiple sites; Z78.0 Asymptomatic menopausal state
CPT/HCPCS: 77080

== ENCOUNTER 2025-02-08 09:57 | Outpatient (CLI) | payer OTHER, SELFPAY ==
--- NOTE | ~2025-02-08 | MM_ITS ---
EXAMINATION: MM screening tyra BI w marty HISTORY: Screening. TECHNIQUE: Craniocaudal and mediolateral oblique 3-D tomosynthesis images were obtained and synthetic 2-D images were generated. CAD analysis was submitted and interpreted. COMPARISON: 2023, 2021, and 2018 BREAST PARENCHYMAL COMPOSITION: Not Dense: There are scattered areas of fibroglandular tissue. FINDINGS: There is a biopsy marker on the left. No suspicious masses are seen. There are no suspicious calcifications. No unexplained architectural distortion is seen. There are no skin or nipple abnormalities identified. There is no adenopathy seen on the images submitted. IMPRESSION: No mammographic evidence to suggest malignancy is seen. The patient may return to screening mammography as per ACR guidelines. BI-RADS 1 - Negative. Reviewed, dictated and finalized at location A. ER OPENER
--- OUTSIDE RECORDS SUMMARY | 2025-02-08 11:18 | XMS_ITS | Patient Health Record ---
Author Organization [facility] Address [address] [facility] [address] [place] [address] Care Team Providers Care Stroke Program Coordinator Name Role Phone David Stokes Unavailable [phone] Reason For Referral No Information Plan Of Treatment No Information
--- OUTSIDE RECORDS SUMMARY | 2025-02-08 11:18 | XMS_ITS | Clinical Summary ---
Author Organization [facility] Address [address] [place] [address] Care Team Providers Care Literacy Coordinator Name Role Phone Jordon De La Paz MD Primary Care Provider [phone] Social History Tobacco Use Types Packs/Day Years [...] 1 - Tdap) 1970 Mammogram Screening 1991 Pneumococcal Vaccine: 50+ Ye ars (1 of 1 - PCV) 2001 Zoster Vaccines (1 of 2) 2001 Dexa Scan (General) 02/26/2016 COVID-19 Vaccine ( - 2024-2 6 season) 2024 Influenza Adult (#1) 2024 RSV Immunization or 60+ Years (1 - 1-dose 75+ series) 2026 Hepatitis A Vaccines Aged Out No long er eligible based on patient's age to complete this topic Meningococcal B Vaccine Aged Out No l onger eligible based on patient's age to complete this topic Meningococcal Vaccine Aged Out No martha ene eligible based on patient's age to complete this topic RSV Immunizations Under 20 Months Aged Out No longer eligible based on patient's age to complete this topic Care Teams Literacy Coordinator Relationship Specialty Start Date End Date Jordon De La Paz MD [address] [place] [address] PCP - General 04/09/15
== END 2025-02-08 09:58 | disposition home or self-care (01) ==
LOC: ANHFOHIMG 09:58
PROVIDERS: Visit Provider Physician Assistant
DX: Z12.31 Encounter for screening mammogram for malignant neoplasm of breast (principal)
CPT/HCPCS: 77063; 77067